=== PATIENT | male | born 1930 | race Caucasian/White ===

== ENCOUNTER 2017-09-14 05:47 | Day surgery (SDC) | payer MEDICARE ==
[2017-09-14] MEDS ORDERED: DIPRIVAN 200 MG/20 ML IV ONE (05:48)
[2017-09-14] MEDS ORDERED: Ketamine HCl 50 MG/ML IV ONE (05:48)
[2017-09-14] MEDS ORDERED: Lactated Ringers 1,000 ML IV SCH (06:30)
[2017-09-14 08:40] VITALS: O2SAT 96
[2017-09-14 09:01] VITALS: BP 140/72; PULSE 75
--- NOTE | 2017-09-14 10:26 | OP ---
SURGERY DATE/TIME: 09/14/2017 0755 PREOPERATIVE DIAGNOSIS: History of colon cancer. POSTOPERATIVE DIAGNOSIS: Normal residual colon status post right hemicolectomy. PROCEDURE: Colonoscopy. SURGEON: Dr. Hobbs. ANESTHESIA: MAC. Medications given by anesthesia department. HISTORY: The patient is an 87 year-old white male patient now presenting for evaluation due to previous history of colon cancer. The patient was described the risks of the procedure including the risk of perforation, phlebitis, untoward reaction to medication, bleeding and missed lesions. The patient verbalized his understanding and desired to have the procedure performed. DESCRIPTION OF PROCEDURE: The patient was given the medications by the anesthesia department. He had continuous pulse oximetry, ECG monitoring, intermittent blood pressure monitoring and tidal CO2 monitoring during the examination. He was placed in the left lateral decubitus position. A digital rectal examination was performed and revealed a tight stricture-like anal opening. No palpable masses were felt. I was able to introduce the little finger in and examine the prostate which was felt to be normal. The flexible Olympus pediatric colonoscope was used to intubate the rectum. A view of the colon was developed sequentially to the area of what appeared to be end-to-side anastomosis. There appeared to be no mucosal lesions upon insertion or withdrawal. The scope was removed from the patient who tolerated the procedure well and was sent back to OP recovery in good condition. The prep was noted to be good.
== END 2017-09-14 09:10 | disposition home or self-care (01) ==
LOC: SDC 05:47
PROVIDERS: ATTEND Family Medicine
DX: Z85.038 Personal history of other malignant neoplasm of large intestine (principal); Z90.49 Acquired absence of other specified parts of digestive tract; Z85.51 Personal history of malignant neoplasm of bladder
CPT/HCPCS: 99100; J2704